=== PATIENT | female | born 2000 | race Two or more races ===

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

== ENCOUNTER 2022-03-05 14:03 | Inpatient (IN) | payer OTHER ==
[~2022-03-05] VITALS: Ht 154.9 cm; Wt 59.0 kg
[2022-03-06] MEDS ORDERED: PRENATAL TABLE1 EAC1 PO (09:29)
== END 2022-03-08 15:12 | disposition home or self-care (01) | DRG 768 ==
LOC: OB/GYN 14:03 → LDR 03-06 08:06 → OB/GYN 03-06 18:47
PROVIDERS: ADMIT Obstetrics & Gynecology; ATTEND Obstetrics & Gynecology
PROC: 10E0XZZ Delivery of Products of Conception, External Approach (ICD-10-PCS; principal; 2022-03-06)
PROC: 0DQR0ZZ Repair Anal Sphincter, Open Approach (ICD-10-PCS; 2022-03-06)
PROC: 0W8NXZZ Division of Female Perineum, External Approach (ICD-10-PCS; 2022-03-06)
PROC: 3E033VJ Introduction of Other Hormone into Peripheral Vein, Percutaneous Approach (ICD-10-PCS; 2022-03-06)
PROC: 3E0P7VZ Introduction of Hormone into Female Reproductive, Via Natural or Artificial Opening (ICD-10-PCS; 2022-03-06)
DX: O70.21 Third degree perineal laceration during delivery, IIIa (principal); Z37.0 Single live birth; O99.824 Streptococcus B carrier state complicating childbirth; Z3A.40 40 weeks gestation of pregnancy; Z20.822 Contact with and (suspected) exposure to COVID-19